=== PATIENT | male | born 1970 | race African-American/Black ===

== ENCOUNTER 2018-04-05 08:45 | Emergency (ER) | payer SELFPAY ==
[2018-04-05 09:30] LABS: #Basophils 0.1 thou/uL (0.0-0.2); #Eosinphils 0.2 thou/uL (0.0-0.7); #Lymphocytes 1.9 thou/uL (1.20-3.40); #Monocytes 0.5 thou/uL (0.11-0.59); #Neutrophils 2.9 thou/uL (1.40-6.50); %Basophils 0.9 % (0.0-1.0); %Eosinophils 2.9 % (0.0-10.0); %Lymphocytes 34.5 % (21.0-51.0); %Monocytes 8.5 % (0.0-10.0); %Neutrophils 53.1 % (42.0-75.0); Hemoglobin 13.4 g/dL (14.0-18.0); Mean Corpuscular HGB CONC 32.7 g/dL (32.0-36.0); Mean Corpuscular Hemoglobin 28.5 pg (27.0-31.0); Mean Corpuscular Volume 87.1 fL (78.0-98.0); Mean Platelet Volume 7.9 fL (7.4-10.4); Platelet Count 252 thou/uL (130-400); RBC Distribution Width 12.4 % (11.5-14.5); Red Blood Cell (RBC) Count 4.69 mill/uL (4.70-6.10); White Blood Cell (WBC) Count 5.4 thou/uL (4.8-10.8)
[2018-04-05 09:36] LABS: Bilirubin Negative (Negative); Blood, Urine Small (Negative); Clarity CLEAR (Clear); Glucose, Urine (Dipstick) Negative (Negative); Leukocyte Moderate (Negative); Nitrite Negative (Negative); Protein, Urine (Dipstick) Negative (Neg-Trace); Specific Gravity, Urine 1.028 (1.002-1.036); Urobilinogen 0.2 mg/dL (0.2-1.0); pH, Urine 5.5 (5.0-9.0)
[2018-04-05 09:38] LABS: Bacteria/HPF None Seen HPF (None Seen); Pathc Cast-AUWi Flag 1.01 (0-2.49); RBC/HPF 0-3 HPF (0-3); WBC/HPF 21-50 HPF (0-3)
[2018-04-05 09:45] LABS: Hyaline Casts/LPF 0-3 HYALINE CAST LPF (0-3 Hyaline); Renal Epithelial 0-3 HPF (0-3); Transitional Epithelial 0-3 HPF (0-3)
[2018-04-05 09:51] LABS: ALT (SGPT) 41 U/L (8-55); AST (SGOT) 29 U/L (5-34); Albumin 4.4 g/dL (3.5-5.0); Alkaline Phosphatase 78 U/L (40-150); Anion Gap 16 mmol/L (10-20); BUN (Urea Nitrogen) 16 mg/dL (8.9-20.6); Bilirubin, Total 0.7 mg/dL (0.2-1.2); Calc. Creatinine Clearance 0 mL/min (70-130); Calcium 9.4 mg/dL (7.8-10.44); Carbon Dioxide 22 mmol/L (22-29); Chloride 103 mmol/L (98-107); Estimated GFR-MDRD 88; Globulin 3.4 g/dL (2.4-3.5); Glucose 112 mg/dL (70-105); Lipase 18 U/L (8-78); Potassium 3.7 mmol/L (3.5-5.1); Protein, Total 7.8 g/dL (6.0-8.3); Sodium 137 mmol/L (136-145)
[2018-04-05] MEDS ORDERED: cefTRIAXone\\ROCEPHIN 1 GM VIAL ONE (10:13)
[2018-04-05] MEDS ORDERED: Lidocaine 1% PF 5 ML VIAL ONE (10:13)
== END 2018-04-05 10:58 | disposition home or self-care (01) ==
LOC: ERS 08:45
DX: N39.0 Urinary tract infection, site not specified (principal); I10 Essential (primary) hypertension
CPT/HCPCS: 36415; 80053; 81003; 81015; 83690; 85025; 96372; J0696; J2001

== ENCOUNTER 2018-08-29 13:09 | Emergency (ER) | payer SELFPAY | END 2018-08-29 15:01 | disposition home or self-care (01) | LOC: ERS 13:09 | DX: J06.9 Acute upper respiratory infection, unspecified (principal); I10 Essential (primary) hypertension; Z79.899 Other long term (current) drug therapy | CPT/HCPCS: 99283 ==

== ENCOUNTER 2018-08-31 08:40 | Emergency (ER) | payer SELFPAY | END 2018-08-31 09:40 | disposition home or self-care (01) | LOC: ERS 08:40 | DX: B34.9 Viral infection, unspecified (principal); I10 Essential (primary) hypertension | CPT/HCPCS: 99283 ==

== ENCOUNTER 2019-08-21 19:06 | Emergency (ER) | payer SELFPAY ==
[2019-08-21 19:50] LABS: Hemoglobin 15.8 g/dL (14.0-18.0); Mean Corpuscular HGB CONC 32.8 g/dL (32.0-36.0); Mean Corpuscular Hemoglobin 27.7 pg (27.0-31.0); Mean Corpuscular Volume 84.4 fL (78.0-98.0); Mean Platelet Volume 8.7 fL (7.4-10.4); Platelet Count 252 thou/uL (130-400); RBC Distribution Width 12.3 % (11.5-14.5); White Blood Cell (WBC) Count 4.6 thou/uL (4.8-10.8)
[2019-08-21 20:03] LABS: ALT (SGPT) 89 U/L (8-55); AST (SGOT) 67 U/L (5-34); Albumin 4.8 g/dL (3.5-5.0); Alkaline Phosphatase 63 U/L (40-110); Anion Gap 15 mmol/L (10-20); BUN (Urea Nitrogen) 22 mg/dL (8.9-20.6); Bilirubin, Total 0.4 mg/dL (0.2-1.2); Calc. Creatinine Clearance 0 mL/min (70-130); Calcium 9.8 mg/dL (7.8-10.44); Carbon Dioxide 26 mmol/L (22-29); Chloride 99 mmol/L (98-107); Estimated GFR-MDRD 60; Globulin 3.3 g/dL (2.4-3.5); Glucose 101 mg/dL (70-105); Lipase 22 U/L (8-78); Potassium 3.1 mmol/L (3.5-5.1); Protein, Total 8.1 g/dL (6.0-8.3); Sodium 137 mmol/L (136-145)
[2019-08-21 20:18] LABS: Band 5 % (5-11); Eosinophils 1 % (0-10); Lymphocytes 35 % (21-51); MDiff Complete? YES; Monocytes 7 % (0-10); Neutrophil 42 % (42-75); Platelet Morphology Comment Appears Adequate; Polychromasia SLIGHT = 2-3 cells (100X) (0-2/hpf); Reactive Lymphocytes 10 % (0-10)
--- NOTE | 2019-08-21 20:18 | RAD ---
EXAM: Chest PA and lateral: HISTORY: Chest pain COMPARISON: 06/11/2015 FINDINGS: Heart: Normal cardiac silhouette Aorta: Unremarkable Pulmonary vessels: Normal Costophrenic angles: Costophrenic angles are clear. Lungs: No consolidation or masses. Pneumothorax: No pneumothorax Osseous structures: No osseous abnormalities IMPRESSION: No acute cardiopulmonary process.
== END 2019-08-21 21:58 | disposition home or self-care (01) ==
LOC: ERS 19:06
DX: J06.9 Acute upper respiratory infection, unspecified (principal); E86.0 Dehydration; I10 Essential (primary) hypertension; Z79.899 Other long term (current) drug therapy
CPT/HCPCS: 36415; 71046; 80053; 83690; 84484; 85025; 93005; 94760

== ENCOUNTER 2019-08-31 11:20 | Observation (INO) | payer BC ==
[2019-08-28 14:43] VITALS: BMI 34.0
[~2019-08-31 11:20] MED LIST: Dexamethasone 20 MG/5 ML VIAL ONE; Labetalol HCl 100 MG/20 ML VIAL ONE; Lidocaine 1% PF 5 ML VIAL ONE; Ondansetron PF 4 MG/2 ML Vial ONE; PROPOFOL 200 MG/20 ML VIAL ONE; Rocuronium Bromide 10 MG/ML (10ML VIAL) ONE
[2019-08-31] MEDS ORDERED: ceFOXitin 2 GM/50 ML Duplex BAG ONE (11:34)
[2019-08-31] MEDS ORDERED: Bupivacaine PF 0.5% 30 ML VIAL ONE (13:12)
[2019-08-31] MEDS ORDERED: Lidocaine 1% w/Epinephrine 1:100K 20 ML VIAL ONE (13:12)
[2019-08-31] MEDS ORDERED: Iothalamate Meglumine 60% 50 ML VIAL FS ONE ×3 (13:12→14:49)
[2019-08-31] MEDS ORDERED: HYDROmorphone 0.5 MG/0.5 ML SYRINGE ONE (13:13)
[2019-08-31] MEDS ORDERED: Fentanyl 100 MCG/2 ML VIAL ONE ×3 (13:13→16:08)
[2019-08-31] MEDS ORDERED: Lidocaine 2% Jelly 5 ML TUBE ONE (13:14)
[2019-08-31] MEDS ORDERED: Midazolam HCl 2 mg/2 ml Vial ONE (13:17)
[2019-08-31] MEDS ORDERED: Indomethacin 50 MG SUPP ONE (14:49)
--- NOTE | 2019-08-31 14:54 | RAD ---
INTRAOPERATIVE CHOLANGIOGRAM: HISTORY: Cholelithiasis. FINDINGS: Two portable fluoroscopic spot images were presented for interpretation. There is an abnormally dilat ed common duct with at least one intraductal stone in the distal common bile duct. There is some dila tation of the intrahepatic ducts. All of the intrahepatic ducts are not seen. There is minimal reflux into the pancreatic duct. IMPRESSION: Filling defect in the distal common bile duct with fairly marked proximal dilatation, concerning for an obstructing distal common duct calculus. Minimal reflux into the pancreatic duct. Intrahepatic katherine ts are not completely seen on this study. CODE T POS: OFF
[2019-08-31] MEDS ORDERED: SUGAMMADEX SODIUM 200 MG/2 ML VIAL ONE ×2 (15:04→15:16)
--- NOTE | 2019-08-31 15:25 | OP ---
DATE OF PROCEDURE: 08/31/2019 PREOPERATIVE DIAGNOSIS: Symptomatic gallstones with a dilated common bile duct. POSTOPERATIVE DIAGNOSES: Chronic cholecystitis, symptomatic gallstones, and distal common bile duct stone, nonobstructing. ANESTHESIA: General. ESTIMATED BLOOD LOSS: 100 mL. PROCEDURES PERFORMED: Laparoscopic cholecystectomy with intraoperative cholangiogram. SPECIMENS: Gallbladder. FINDINGS: Distal common bile duct stone. DESCRIPTION OF PROCEDURE: The patient was taken to the operating room and laid supine on the operating room table. After general anesthetic was obtained, the abdomen was shaved, prepped, and draped in a sterile fashion. A curved incision was made below the umbilicus. Cautery was dissected down to and score the fascia. Abdominal cavity was entered bluntly using a Cathleen clamp. Holding stitch of PDS was placed on each side of fascia. Anni trocar was placed. High-flow pneumoperitoneum was obtained. Two right upper quadrant 5 mm ports and a subxiphoid 5 mm port were placed under direct visualization. The gallbladder was retracted from the gallbladder fossa. The peritoneum was opened anteriorly and posteriorly. The critical view triangle was seen showing only the cystic duct and cystic artery branching medial to lateral and no other branching structures. A clip was placed high on the cystic duct and a small ductotomy was made just proximal to that. A cholangiocatheter was brought in through a separate stab incision and a cholangiogram was performed, which showed distal common duct stone without complete obstruction. There was good contrast flow into the dilated hepatic ducts proximally as well. The cholangiocatheter was removed. Two clips were placed proximally on the cystic duct and it was cut using laparoscopic scissors. Cystic artery was taken in the same way. Cautery was used to dissect the gallbladder and gallbladder fossa. Gallbladder was placed in EndoCatch bag and brought out through the Anni. There was some oozing in the base of the liver bed and an additional 5 mm port and the Snake retractor had to be placed in order for visualization. Hopefully, there was no ongoing bleeding. The right upper quadrant was irrigated until returns were clear. All port sites were infiltrated using local anesthetic. All ports were removed under camera visualization. Pneumoperitoneum was let down. PDS was used to close the fascial defect below the umbilicus. All incisions were irrigated and closed using 4-0 Monocryl and Dermabond. The patient was sent to Recovery in stable condition. All instrument counts, needle counts, and lap counts were correct. Job ID: [id number]
[2019-08-31] MEDS ORDERED: Promethazine HCl 25 MG/ML VIAL SLOW IVP PRN (16:21)
[2019-08-31] MEDS ORDERED: Ondansetron HCl/PF 4 MG/2 ML Vial IVP PRN (16:21)
[2019-08-31] MEDS ORDERED: Promethazine HCl 25 MG/ML VIAL IM PRN ×2 (16:21→17:04)
[2019-08-31] MEDS ORDERED: Dextrose 50% Abboject 50 ML SYRINGE SLOW IVP PRN (17:04)
[2019-08-31] MEDS ORDERED: Morphine 2 MG/ML SYRINGE SLOW IVP PRN (17:04)
[2019-08-31] MEDS ORDERED: hydrALAZINE 20 MG/ML VIAL SLOW IVP PRN (17:04)
[2019-08-31] MEDS ORDERED: Ondansetron PF 4 MG/2 ML Vial IVP PRN (17:04)
[2019-08-31] MEDS ORDERED: Dextrose 5% in Water 1,000 ML IV PRN (17:04)
[2019-08-31] MEDS ORDERED: Calcium Carbonate 500 MG ChewTAB PO PRN (17:04)
[2019-08-31] MEDS ORDERED: Mag-Al 1200 mg/1200 mg/30 ML UDCUP PO PRN (17:04)
[2019-08-31] MEDS: Sodium Chloride 0.9% 1,000 ML IV SCH (17:36)
[2019-08-31] MEDS: Famotidine 20 MG TAB PO SCH (20:38)
[2019-08-31] MEDS: Morphine 4 MG/ML VIAL SLOW IVP PRN (20:39)
[2019-08-31] MEDS: Famotidine/PF 20 mg/2ml Vial SLOW IVP SCH (21:14)
[2019-08-31] MEDS: HYDROcodone/Acetaminophen 7.5/325 mg Tablet PO PRN (22:57)
[2019-09-01] MEDS: Sodium Chloride 0.9% 1,000 ML IV SCH ×2 (03:09→13:19)
[2019-09-01] MEDS: Morphine 4 MG/ML VIAL SLOW IVP PRN ×5 (03:10→21:35)
[2019-09-01 05:24] LABS: #Lymphocytes 1.5 thou/uL (1.20-3.40); #Monocytes 1.1 thou/uL (0.11-0.59); #Neutrophils 13.6 thou/uL (1.40-6.50); %Basophils 0.3 % (0.0-1.0); %Lymphocytes 9.2 % (21.0-51.0); %Monocytes 6.6 % (0.0-10.0); Hemoglobin 12.1 g/dL (14.0-18.0); Mean Corpuscular HGB CONC 31.7 g/dL (32.0-36.0); Mean Corpuscular Hemoglobin 27.5 pg (27.0-31.0); Mean Corpuscular Volume 86.7 fL (78.0-98.0); Mean Platelet Volume 8.6 fL (7.4-10.4); Platelet Count 287 thou/uL (130-400); RBC Distribution Width 11.9 % (11.5-14.5); Red Blood Cell (RBC) Count 4.42 mill/uL (4.70-6.10); White Blood Cell (WBC) Count 16.2 thou/uL (4.8-10.8)
[2019-09-01 05:35] LABS: INR-International Normal Ratio 1.1; Prothrombin Time 14.1 SEC (12.0-14.7)
[2019-09-01 05:47] LABS: ALT (SGPT) 100 U/L (8-55); AST (SGOT) 72 U/L (5-34); Albumin 3.7 g/dL (3.5-5.0); Alkaline Phosphatase 49 U/L (40-110); Bilirubin, Direct 0.2 mg/dL (0.1-0.3); Bilirubin, Total 0.6 mg/dL (0.2-1.2); Lipase 7 U/L (8-78); Protein, Total 6.3 g/dL (6.0-8.3)
[2019-09-01] MEDS: HYDROcodone/Acetaminophen 7.5/325 mg Tablet PO PRN ×2 (06:03→18:36)
[2019-09-01] MEDS: Famotidine 20 MG TAB PO SCH ×2 (07:47→21:35)
[2019-09-01] MEDS: Famotidine/PF 20 mg/2ml Vial SLOW IVP SCH ×2 (07:47→23:05)
[2019-09-01] MEDS: Lisinopril/Hydrochlorothiazide 10 mg/12.5 mg Tablet PO SCH (07:47)
[2019-09-01] MEDS ORDERED: FLU VACC QS2019-20(6MOS UP)/PF 60 MCG/0.5 ML SYRINGE IM ONE (09:00)
[2019-09-01] MEDS ORDERED: Rocuronium Bromide 10 MG/ML (10ML VIAL) ONE (09:14)
[2019-09-01] MEDS ORDERED: Lidocaine 1% PF 5 ML VIAL ONE (09:14)
[2019-09-01] MEDS ORDERED: Ondansetron PF 4 MG/2 ML Vial ONE ×2 (09:14→12:31)
[2019-09-01] MEDS ORDERED: Succinylcholine Chloride 20 MG/ML 10 ml SYRINGE FS ONE (09:14)
[2019-09-01] MEDS ORDERED: PHENYLEPHRINE-NS 100 MCG/ML 10 ML SYRINGE ONE (09:14)
[2019-09-01] MEDS ORDERED: PROPOFOL 200 MG/20 ML VIAL ONE (09:14)
[2019-09-01] MEDS ORDERED: Iothalamate Meglumine 60% 50 ML VIAL FS ONE ×3 (09:59→14:06)
[2019-09-01] MEDS ORDERED: Indomethacin 50 MG SUPP ONE ×2 (09:59→12:57)
[2019-09-01] MEDS ORDERED: Fentanyl 100 MCG/2 ML VIAL ONE (12:57)
[2019-09-01] MEDS ORDERED: Promethazine HCl 25 MG/ML VIAL SLOW IVP PRN (13:27)
[2019-09-01] MEDS ORDERED: Morphine Sulfate 2 MG/ML SYRINGE SLOW IVP PRN (13:27)
[2019-09-01] MEDS ORDERED: Ketorolac Tromethamine 30 MG/ML VIAL IVP PRN (13:27)
[2019-09-01] MEDS ORDERED: Ondansetron HCl/PF 4 MG/2 ML Vial IVP PRN (13:27)
--- NOTE | 2019-09-01 14:56 | RAD ---
ERCP: 09/01/2019 HISTORY: Choledocholithiasis FINDINGS: 9 images from an ERCP are provided. Images demonstrate prominent dilation of the common olvin e duct. The distal aspect of the common bile duct is never well evaluated as it is not fully opacified. There is a balloon inflated within the common bile duct on many of the provided images. IMPRESSION: Dilated common bile duct. Incomplete assessment of the distal CBD. There is a balloon inf lated within the common bile duct during this procedure.
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
[2019-09-01] MEDS ORDERED: Lactated Ringer's 500 ML IV SCH (18:00)
[2019-09-01] MEDS: Lactated Ringer's 1,000 ML IV SCH ×3 (18:14→20:15)
[2019-09-02] MEDS: Sodium Chloride 0.9% 1,000 ML IV SCH ×2 (00:27→10:24)
[2019-09-02] MEDS: HYDROcodone/Acetaminophen 7.5/325 mg Tablet PO PRN ×2 (00:35→08:06)
[2019-09-02] MEDS: Lactated Ringer's 1,000 ML IV SCH ×2 (00:35→10:24)
[2019-09-02 05:08] LABS: #Lymphocytes 1.1 thou/uL (1.20-3.40); #Monocytes 0.6 thou/uL (0.11-0.59); #Neutrophils 8.1 thou/uL (1.40-6.50); %Basophils 0.2 % (0.0-1.0); %Eosinophils 0.2 % (0.0-10.0); %Lymphocytes 10.9 % (21.0-51.0); %Monocytes 6.2 % (0.0-10.0); %Neutrophils 82.5 % (42.0-75.0); Hemoglobin 11.3 g/dL (14.0-18.0); Mean Corpuscular HGB CONC 32.9 g/dL (32.0-36.0); Mean Corpuscular Hemoglobin 28.6 pg (27.0-31.0); Mean Corpuscular Volume 87.1 fL (78.0-98.0); Mean Platelet Volume 8.2 fL (7.4-10.4); Platelet Count 240 thou/uL (130-400); RBC Distribution Width 12.1 % (11.5-14.5); Red Blood Cell (RBC) Count 3.95 mill/uL (4.70-6.10); White Blood Cell (WBC) Count 9.8 thou/uL (4.8-10.8)
[2019-09-02 05:31] LABS: ALT (SGPT) 263 U/L (8-55); AST (SGOT) 210 U/L (5-34); Albumin 3.4 g/dL (3.5-5.0); Alkaline Phosphatase 157 U/L (40-110); Anion Gap 9 mmol/L (10-20); BUN (Urea Nitrogen) 8 mg/dL (8.9-20.6); Calc. Creatinine Clearance 169 mL/min (70-130); Calcium 8.5 mg/dL (7.8-10.44); Carbon Dioxide 30 mmol/L (22-29); Chloride 102 mmol/L (98-107); Estimated GFR-MDRD Greater than 90; Globulin 2.8 g/dL (2.4-3.5); Glucose 119 mg/dL (70-105); Lipase 303 U/L (8-78); Potassium 3.4 mmol/L (3.5-5.1); Protein, Total 6.2 g/dL (6.0-8.3); Sodium 138 mmol/L (136-145)
[2019-09-02 07:53] VITALS: BP 172/93; TEMP 98.7
[2019-09-02] MEDS: Lisinopril/Hydrochlorothiazide 10 mg/12.5 mg Tablet PO SCH (08:05)
[2019-09-02] MEDS: Famotidine 20 MG TAB PO SCH (08:06)
[2019-09-02] MEDS: Famotidine/PF 20 mg/2ml Vial SLOW IVP SCH (08:09)
--- NOTE | 2019-09-02 21:53 | DIS ---
DATE OF ADMISSION: 08/31/2019 DATE OF DISCHARGE: 09/02/2019 ADMISSION DIAGNOSIS: Symptomatic cholelithiasis. DISCHARGE DIAGNOSES: Chronic cholecystitis with common bile duct obstruction. PROCEDURES: 1. Laparoscopic cholecystectomy with intraoperative cholangiogram. 2. Endoscopic retrograde cholangiopancreatography. HOSPITAL COURSE: This is a 49-year-old male, who was evaluated by Dr. Abimael Dow in clinic with symptomatic cholelithiasis. He was scheduled for elective cholecystectomy. He during the procedure, and his intraoperative cholangiogram demonstrated a distal common bile duct obstruction. He was placed in observation, and Gastroenterology was consulted. The following day, he underwent ERCP with reported clearance of the common bile duct. He was returned to the floor. While on the floor, he was advanced to a regular diet. He has ambulated early in his postoperative course. On hospital day #3, he was ambulating independently, tolerating regular diet, voiding spontaneously, and was appropriate for discharge. DISCHARGE DISPOSITION: Home. DISCHARGE CONDITION: Stable. DISCHARGE MEDICATIONS: 1. Home lisinopril/hydrochlorothiazide. 2. [place] 7.5/325. DISCHARGE INSTRUCTIONS: 1. Regular diet. 2. Activity as tolerated. Avoid heavy lifting and straining for 2 to 4 weeks. 3. Contact the Surgery Clinic or report to the emergency department for increasing abdominal pain, fevers, high heart rate, or intractable nausea and vomiting. 4. Do not attempt to remove skin adhesive dressing. Wash normally, it will come off on it's own. Job ID: [id number] MTDD
--- NOTE | 2019-09-04 10:26 | OP ---
DATE OF PROCEDURE: 09/01/2019 PROCEDURE PERFORMED: Endoscopic retrograde cholangiopancreatography. PREPROCEDURE DIAGNOSIS: Choledocholithiasis by an intraoperative cholangiogram yesterday at elective laparoscopic cholecystectomy. POSTPROCEDURE DIAGNOSIS: 1. 15 to 18 mm common bile duct dilated. 2. Multiple stones in the duct with cuboid trapezoid requiring mechanical lithotripsy and basket extraction as well as balloon extraction. ANESTHESIA: General endotracheal anesthesia, antibiotics given, Indocin given. RECOMMENDATIONS: 1. Monitor overnight. If the patient has no signs of pain in the morning, would anticipate discharge home at that time. We will start clear liquids. 2. We will check labs in the morning. PROCEDURE IN DETAIL: After the patient was informed of the risks, benefits, and possible complications of endoscopy including perforation, bleeding, reaction to medication, aspiration, informed consent was obtained. The patient was brought to endoscopy suite, where he was sedated in gradual fashion. He was intubated and placed in a prone position on fluoroscopy table. A side-viewing duodenoscope was advanced to the esophagus, stomach, and second and third portions of the duodenum. The ampulla was brought into view. Precannulation was obtained with assistance of a guidewire. There was no injection of pancreatic duct. Multiple filling defects noted in the distal duct were seen to be small. A sphincterotomy was performed over the guidewire and some stones were removed with a 12-mm balloon. With a 15 mm balloon, stones were impacted in the ampulla. The sphincterotomy was enlarged using a needle knife and then the mechanical lithotripter was used to snare several large stones and break them up and then sweep them out of the duct with mechanical lithotripter and the basket. Then, we exchanged for the 12 mm balloon and swept the duct several times, removing a large amount of debris of hard stones from the duct. The duct was then flushed as well with saline and then the 15-mm balloon was used to perform occlusion cholangiogram. The duct was swept several times with a little bit of debris left coming through the 15 mm balloon, could come through the sphincterotomy with no problem. Occlusion cholangiogram revealed no further filling defects and there was spontaneous drainage of contrast both endoscopically and radiographically. The scope was removed. The patient tolerated the procedure well. There were no complications. Job ID: [id number]
== END 2019-09-02 12:20 | disposition home or self-care (01) ==
LOC: SDC 11:20 → SJJU 15:05
PROVIDERS: ADMIT Surgery; ATTEND Surgery
PROC: 0FT44ZZ Resection of Gallbladder, Percutaneous Endoscopic Approach (ICD-10-PCS; principal; 2019-08-31)
PROC: BF101ZZ Fluoroscopy of Bile Ducts using Low Osmolar Contrast (ICD-10-PCS; 2019-08-31)
PROC: 0FC98ZZ Extirpation of Matter from Common Bile Duct, Via Natural or Artificial Opening Endoscopic (ICD-10-PCS; 2019-09-01)
PROC: 0F798ZZ Dilation of Common Bile Duct, Via Natural or Artificial Opening Endoscopic (ICD-10-PCS; 2019-09-01)
DX: K80.65 Calculus of gallbladder and bile duct with chronic cholecystitis with obstruction (principal); I10 Essential (primary) hypertension; Z79.899 Other long term (current) drug therapy
CPT/HCPCS: 36415; 36416; 47532; 74330; 80053; 80076; 83690; 85025; 85610; 88304; 96361; 96374; 96375; 96376; G0378; J0694; J1100; J1170; J1610; J2001; J2250; J2270; J2405; J2704; J3010; S0020

== ENCOUNTER 2019-10-10 12:58 | Emergency (ER) | payer BC ==
--- NOTE | 2019-10-10 13:49 | ULT ---
VENOUS DOPPLER ULTRASOUND OF THE RIGHT LOWER EXTREMITY: HISTORY: Right lower extremity edema and pain. TECHNIQUE: Crooks scale ultrasound with color flow and spectral Doppler imaging of the deep venous system of the r ight lower extremity is performed. FINDINGS: There is good flow, compression, and augmentation noted in the right common femoral, femoral, deep fe moral, popliteal, posterior tibial, and greater saphenous veins. Incidental note is made of a 4.4 x 0.9 x 0.2 cm lymph node in the right groin. Soft tissue edema is noted at the right ankle. IMPRESSION: No evidence of deep vein thrombosis in the right lower extremity. POS: TPC
== END 2019-10-10 14:34 | disposition home or self-care (01) ==
LOC: ERS 12:58
DX: M25.571 Pain in right ankle and joints of right foot (principal); R60.0 Localized edema; I10 Essential (primary) hypertension; Z79.899 Other long term (current) drug therapy

== ENCOUNTER 2019-10-27 08:39 | Emergency (ER) | payer BC ==
--- NOTE | 2019-10-27 09:53 | RAD ---
XR Chest 1 View Portable HISTORY: Shortness of breath COMPARISON: 08/21/2019 FINDINGS: The heart size is normal. The lungs are well expanded without focal areas of consolidation, pneumothorax or pleural effusions. IMPRESSION: No radiographic evidence of acute cardiopulmonary process.
== END 2019-10-27 09:58 | disposition home or self-care (01) ==
LOC: ERS 08:39
DX: B34.9 Viral infection, unspecified (principal); I10 Essential (primary) hypertension; Z79.899 Other long term (current) drug therapy
CPT/HCPCS: 71045; 93005

== ENCOUNTER 2021-04-25 14:37 | Emergency (ER) | payer OTHER, BC ==
[~2021-04-25 14:37] MED LIST changes: -Dexamethasone 20 MG/5 ML VIAL ONE; +Iopamidol-370 76% 500 ML 1 ML ONE; -Labetalol HCl 100 MG/20 ML VIAL ONE; -Lidocaine 1% PF 5 ML VIAL ONE; -Ondansetron PF 4 MG/2 ML Vial ONE; -PROPOFOL 200 MG/20 ML VIAL ONE; -Rocuronium Bromide 10 MG/ML (10ML VIAL) ONE
[2021-04-25] MEDS ORDERED: Lidocaine 1% w/Epinephrine 1:100K 20 ML VIAL ONE (14:40)
[2021-04-25] MEDS ORDERED: Boostrix 0.5 ML (Tdap) VIAL ONE (14:42)
[2021-04-25] MEDS ORDERED: CEFAZOLIN 1 GM VIAL ONE ×2 (14:42→14:45)
[2021-04-25] MEDS ORDERED: ceFAZolin 1 GM/D5W 1 GM in Premix Bag 1 BAG IVPB SCH (15:00)
[2021-04-25 15:18] LABS: #Basophils 0.1 thou/uL (0.0-0.2); #Eosinphils 0.3 thou/uL (0.0-0.7); #Lymphocytes 3.4 thou/uL (1.20-3.40); #Monocytes 0.7 thou/uL (0.11-0.59); #Neutrophils 2.7 thou/uL (1.40-6.50); %Basophils 1.2 % (0.0-1.0); %Eosinophils 4.6 % (0.0-10.0); %Monocytes 9.1 % (0.0-10.0); Hemoglobin 12.7 g/dL (14.0-18.0); Mean Corpuscular HGB CONC 32.7 g/dL (32.0-36.0); Mean Corpuscular Hemoglobin 28.9 pg (27.0-31.0); Mean Corpuscular Volume 88.5 fL (78.0-98.0); Mean Platelet Volume 8.2 fL (7.4-10.4); Platelet Count 274 thou/uL (130-400); RBC Distribution Width 12.7 % (11.5-14.5); White Blood Cell (WBC) Count 7.2 thou/uL (4.8-10.8)
[2021-04-25 15:57] LABS: Albumin 4.3 g/dL (3.5-5.0)
[2021-04-25 15:58] LABS: Chloride 102 mmol/L (98-107); Potassium 3.8 mmol/L (3.5-5.1); Sodium 139 mmol/L (136-145)
[2021-04-25 15:59] LABS: Calcium 9.9 mg/dL (7.8-10.44)
[2021-04-25 16:00] LABS: Globulin 3.7 g/dL (2.4-3.5); Glucose 93 mg/dL (70-105)
[2021-04-25 16:01] LABS: Anion Gap 14 mmol/L (10-20); Carbon Dioxide 27 mmol/L (22-29)
[2021-04-25 16:02] LABS: Alkaline Phosphatase 80 U/L (40-110); Bilirubin, Total 0.3 mg/dL (0.2-1.2)
[2021-04-25 16:03] LABS: Calc. Creatinine Clearance 0 mL/min (70-130)
[2021-04-25 16:04] LABS: BUN (Urea Nitrogen) 15 mg/dL (8.9-20.6)
[2021-04-25 16:05] LABS: AST (SGOT) 25 U/L (5-34)
[2021-04-25 16:06] LABS: ALT (SGPT) 23 U/L (8-55)
[2021-04-25] MEDS ORDERED: Morphine 4 MG/ML VIAL ONE (16:27)
== END 2021-04-25 18:15 | disposition home or self-care (01) ==
LOC: ERS 14:37
DX: S31.113A Laceration without foreign body of abdominal wall, right lower quadrant without penetration into peritoneal cavity, initial encounter (principal); Z23 Encounter for immunization; W01.0XXA Fall on same level from slipping, tripping and stumbling without subsequent striking against object, initial encounter; W26.0XXA Contact with knife, initial encounter
CPT/HCPCS: 12001; 74177; 80053; 85025; 90471; 90715; 96365; 96375; J0690; J2270; Q9967